=== PATIENT | female | born 1985 | race Caucasian/White ===

== ENCOUNTER 2016-10-09 17:20 | Emergency (ER) | payer OTHER ==
[~2016-10-09] VITALS: Ht 152.4 cm; Wt 100.5 kg
[~2016-10-09 17:20] MED LIST: CEPH-443 PO; CIPR500T4 PO; HYDR-906 PO; IBUP-1542 PO; PHEN-538 PO
[2016-10-09 17:37] VITALS: Ht 152.4 cm; Wt 100.5 kg
[2016-10-09 18:43] LABS: URINE BLOOD (Dip) POC Trace-intact (NEGATIVE)
--- NOTE | 2016-10-09 19:10 | ERD ---
ER Documentation Chief Complaint Date/Time DATE: 10/09/16 TIME: 19:07 Chief Complaint "SORE THROAT & UTI" STARTING ON THURSDAY HPI This a 31-year-old female who presents to the emergency department today complaining of sore throat and cough for the past week. Patient also reports burning and pain with urination for the past 2 days. States she is taking over- the-counter medication for the urinary tract infection. Denies any shortness of breath, fevers or chills. ROS All systems reviewed and are negative except as per history of present illness. Medications Home Meds Active Scripts Cetirizine Hcl* (Zyrtec*) 10 Mg Capsule, 10 MG PO DAILY, #14 TAB.CHEW Prov:COMPA GOMEZ PA-C 10/09/16 Guaifenesin-Dextromethorphan* (Robitussin* DM) 100MG/10MG/5ML Syrup, 10 ML PO Q4H Y for COUGH for 5 Days, ML Prov:COMPA GOMEZ PA-C 10/09/16 Acetaminophen* (Tylophen*) 500 Mg Capsule, 1 CAP PO Q6H Y for PAIN AND OR ELEVATED TEMP, #30 CAP Prov:COMPA GOMEZ PA-C 10/09/16 Ibuprofen* (Motrin*) 600 Mg Tab, 600 MG PO Q6, #30 TAB Prov:COMPA GOMEZC 10/09/16 Cephalexin* (Keflex*) 500 Mg Capsule, 500 MG PO QID for 7 Days, CAP Prov:COMPA GOMEZ PA-C 10/09/16 Ibuprofen* (Motrin*) 600 Mg Tab, 600 MG PO Q8, #30 TAB Prov:ANKIT CHEN, MEDICINE AIDE 05/29/16 Hydrocodone/Acetaminophen ([place] 5-325 Tablet) 1 Each Tablet, 1 TAB PO Q6H Y for PAIN, #5 TAB 0 Refills Prov:ANKIT CHEN NP 05/29/16 Cephalexin* (Keflex*) 500 Mg Capsule, 500 MG PO QID for 7 Days, CAP Prov:ZARINA RALPH PA-C 09/20/15 Ciprofloxacin Hcl* (Ciprofloxacin Hcl*) 500 Mg Tablet, 500 MG PO BID, #20 TAB Prov:MICHELLE JEAN PA-C 06/02/15 Hydrocodone Bit-Acetaminophen ([place]) 5-325 Mg Tablet, 1 TAB PO Q4H Y for PAIN, #10 TAB Prov:MICHELLE JEAN PA-C 06/02/15 Ciprofloxacin Hcl* (Ciprofloxacin Hcl*) 500 Mg Tablet, 500 MG PO BID for 7 Days , TAB Prov:LALITHA ROBBINS PA-C 01/16/15 Phenazopyridine Hcl* (Pyridium*) 200 Mg Tab, 200 MG PO TID for 2 Days, TAB Prov:LALITHA ROBBINS PA-C 01/16/15 Allergies Allergies: Coded Allergies: No Known Allergy (Verified , 01/15/15) PMhx/Soc Medical and Surgical Hx: pt denies Medical Hx, pt denies Surgical Hx History of Surgery: No Anesthesia Reaction: No Hx Neurological Disorder: No Hx Respiratory Disorders: No Hx Cardiac Disorders: No Hx Psychiatric Problems: No Hx Miscellaneous Medical Probl: No Hx Alcohol Use: No Hx Substance Use: No Hx Tobacco Use: No Smoking Status: Never smoker Physical Exam Vitals Vital Signs Date Time Temp Pulse Resp B/P Pulse Ox O2 Delivery O2 Flow Rate FiO2 10/09/16 17:37 99.6 88 20 131/81 96 Physical Exam Const: No acute distress Head: Atraumatic Eyes: Normal Conjunctiva ENT: Ears TMs normal. Nose no drainage. Throat mild erythema no exudate. Neck: Full range of motion..~ No meningismus. Resp: Clear to auscultation bilaterally no absent breath sounds. No wheezing. Cardio: Regular rate and rhythm, no murmurs Abd: Soft, mild suprapubic tenderness on distended. Normal bowel sounds. No right lower quadrant pain. No tenderness to McBurney's. Skin: No petechiae or rashes Neur: Awake and alert Psych: Normal Mood and Affect Results 24 hrs Laboratory Tests Test 10/09/16 18:46 Bedside Urine Blood Trace-intact Bedside Urine Glucose (UA) Negative Bedside Urine Ketones (LAB) Negative Bedside Urine Leukocyte Esterase (L 1+ Bedside Urine Nitrite (LAB) Positive Bedside Urine Protein (LAB) Trace Bedside Urine pH (LAB) 6.0 Procedures/MDM This is a 31-year-old female who presents to the emergency department today with multiple complaints. Patient was complaining of a sore throat and cough for the past week and dysuria for the past 2 days. I did obtain a UA UA shows 1+ leukocyte Estrace and positive nitrates. I will treat the patient for urinary tract infection with Keflex. test is negative. Patient's ENT exam was benign. She is benign. Her oxygen saturation is 96%. She denies any shortness of breath. I will give her a prescription for Tylenol , Motrin and Robitussin as well as Zyrtec. Patient symptoms at this time was consistent with URI likely viral. . I have low suspicion for strep pharyngitis , peritonsillar abscess, retropharyngeal abscess, otitis media, PNA, sinusitis, abscess, meningitis, sepsis, or other acute infectious bacterial process. At this time the patient is stable for discharge and outpatient management. They should follow up with their PCP in the next 1-2. They may return to the emergency department sooner if symptoms persist or worsen. Patient understood and agreed with the plan. . Departure Diagnosis: Primary Impression: UTI (urinary tract infection) Urinary tract infection type: site unspecified Hematuria presence: without hematuria Qualified Code: N39.0 - Urinary tract infection without hematuria, site unspecified Additional Impression: URI (upper respiratory infection) URI type: unspecified URI Qualified Code: J06.9 - Upper respiratory tract infection, unspecified type Condition: COMPA Shah PA-C Oct 09, 2016 19:09
[2016-10-09] MEDS ORDERED: IBUP-1542 PO (19:11)
[2016-10-09] MEDS ORDERED: CEPH-443 PO (19:11)
[2016-10-09] MEDS ORDERED: ACET500C5 PO (19:11)
[2016-10-09] MEDS ORDERED: CETI10CA PO (19:12)
[2016-10-09] MEDS ORDERED: UDROBDM PO (19:12)
[2016-10-09 19:22] VITALS: BP 127/77; PULSE 92; RESP 18; TEMP 98.9
== END 2016-10-09 19:23 | disposition home or self-care (01) ==
LOC: FTE 17:20
DX: N39.0 Urinary tract infection, site not specified (principal); J06.9 Acute upper respiratory infection, unspecified
CPT/HCPCS: 81003; Z7502; 99283

== ENCOUNTER 2016-12-24 08:38 | Emergency (ER) | payer OTHER ==
[~2016-12-24] VITALS: Ht 144.8 cm; Wt 99.5 kg
[~2016-12-24 08:38] MED LIST changes: +ACET500C5 PO; +CETI10CA PO; +UDROBDM PO
[2016-12-24 08:41] VITALS: Ht 144.8 cm; Wt 99.5 kg
[2016-12-24 09:14] LABS: URINE BLOOD (Dip) POC 3+ (NEGATIVE)
[2016-12-24] MEDS ORDERED: IBUPROFEN 600 MG TAB PO ONE (09:30)
--- NOTE | 2016-12-24 09:41 | RADRPT ---
PROCEDURE: US Pelvis CLINICAL INDICATION: L pelvic pain TECHNIQUE: Multiple sonographic images of the pelvis were obtained utilizing a transabdominal and endovaginal technique. The images were reviewed on a PACS workstation. COMPARISON: Pelvic ultrasound from 05/29/2016 LMP: 11/30/2016 FINDINGS: The uterus measures 9.8 x 4.8 x 5.2 cm. The endometrial echo complex measures 15 mm in thickness. A n appropriately positioned intrauterine device is noted. A sub-centimeter Nabothian cyst is identifi ed. The right ovary measures 3.8 x 2.0 x 1.8 cm. The left ovary measures 2.6 x 1.3 x 1.7 cm. There is no rmal vascular flow in both ovaries. No significant ovarian lesions are seen. No significant pelvic free fluid is identified. IMPRESSION: An appropriately positioned intrauterine device is noted. Thickening of the endometrium to 15 mm is likely due to stage of the menstrual cycle. Bilateral ovaries and adnexa are unremarkable. RPTAT: EE Physician Key Date Time Electronically viewed and signed by Physician Key on 12/24/2016 09:41 /
[2016-12-24] MEDS ORDERED: IBUP-1542 PO (10:25)
[2016-12-24] MEDS ORDERED: NITR-58 PO (10:26)
--- NOTE | 2016-12-24 10:34 | ERD ---
ER Documentation Chief Complaint Date/Time DATE: 12/24/16 TIME: 10:29 Chief Complaint LEFT SIDED BACK PAIN RADIATING TO LOWER ABD HPI Patient is a 31-year-old female who presents to the emergency department with left-sided pelvic pain which started 3 months ago. Patient describes the pain to be episodic in nature. Patient states in the past that she was told she had an L ovarian cyst. Patient states that this morning she woke up with significant pain, worse than previously. Patient states that the pain also radiates to her left lower back. Patient denies any fevers, chills, nausea, vomiting, upper abdominal pain, diarrhea. Patient also complaining of increased urination and dysuria. Patient denies any hematuria. Patient states her last menstrual period was on 11-27-16. Patient denies any excessive bleeding or excessive vaginal discharge. ROS All systems reviewed and are negative except as per history of present illness. Medications Home Meds Active Scripts Nitrofurantoin Monohyd Macrocr* (Macrobid*) 100 Mg Capsr, 100 MG PO BID for 5 Days, CAP Prov:CHARI DONALD-C 12/24/16 Ibuprofen* (Motrin*) 600 Mg Tab, 600 MG PO Q6, #30 TAB Prov:CHARI DONALD-C 12/24/16 Cetirizine Hcl* (Zyrtec*) 10 Mg Capsule, 10 MG PO DAILY, #14 TAB.CHEW Prov:COMPA GOMEZ-C 10/09/16 Guaifenesin-Dextromethorphan* (Robitussin* DM) 100MG/10MG/5ML Syrup, 10 ML PO Q4H Y for COUGH for 5 Days, ML Prov:COMPA GOMEZ-C 10/09/16 Acetaminophen* (Tylophen*) 500 Mg Capsule, 1 CAP PO Q6H Y for PAIN AND OR ELEVATED TEMP, #30 CAP Prov:COMPA GOMEZ-C 10/09/16 Ibuprofen* (Motrin*) 600 Mg Tab, 600 MG PO Q6, #30 TAB Prov:COMPA GOMEZ-C 10/09/16 Cephalexin* (Keflex*) 500 Mg Capsule, 500 MG PO QID for 7 Days, CAP Prov:COMPA GOMEZ-C 10/09/16 Ibuprofen* (Motrin*) 600 Mg Tab, 600 MG PO Q8, #30 TAB Prov:ANKIT CHEN, CHELI 05/29/16 Hydrocodone/Acetaminophen ([place] 5-325 Tablet) 1 Each Tablet, 1 TAB PO Q6H Y for PAIN, #5 TAB 0 Refills Prov:ANKIT CHEN, CHELI 05/29/16 Cephalexin* (Keflex*) 500 Mg Capsule, 500 MG PO QID for 7 Days, CAP Prov:ZARINA RALPH PA-C 09/20/15 Ciprofloxacin Hcl* (Ciprofloxacin Hcl*) 500 Mg Tablet, 500 MG PO BID, #20 TAB Prov:MICHELLE JEAN PA-C 06/02/15 Hydrocodone Bit-Acetaminophen ([place]) 5-325 Mg Tablet, 1 TAB PO Q4H Y for PAIN, #10 TAB Prov:MICHELLE JEAN PA-C 06/02/15 Ciprofloxacin Hcl* (Ciprofloxacin Hcl*) 500 Mg Tablet, 500 MG PO BID for 7 Days , TAB Prov:LALITHA ROBBINS PA-C 01/16/15 Phenazopyridine Hcl* (Pyridium*) 200 Mg Tab, 200 MG PO TID for 2 Days, TAB Prov:LALITHA ROBBINS PA-C 01/16/15 Allergies Allergies: Coded Allergies: No Known Allergy (Verified , 12/24/16) PMhx/Soc Medical and Surgical Hx: pt denies Medical Hx, pt denies Surgical Hx History of Surgery: No Anesthesia Reaction: No Hx Neurological Disorder: No Hx Respiratory Disorders: No Hx Cardiac Disorders: No Hx Psychiatric Problems: No Hx Miscellaneous Medical Probl: No Hx Alcohol Use: No Hx Substance Use: No Hx Tobacco Use: No Smoking Status: Never smoker FmHx Family History: No diabetes Physical Exam Vitals Vital Signs Date Time Temp Pulse Resp B/P Pulse Ox O2 Delivery O2 Flow Rate FiO2 12/24/16 10:45 77 18 137/68 99 Room Air 12/24/16 08:41 98.0 91 19 135/73 99 Physical Exam GENERAL: Well-developed, well-nourished female. Appears in no acute distress. Speaking in full sentences. HEAD: Normocephalic, atraumatic. EYES: Pupils are equally reactive bilaterally. EOMs grossly intact. No conjunctival erythema. ENT: Moist mucous membranes. No uvula deviation. No kissing tonsils. NECK: Supple. No meningismus. Normal range of motion of the neck. LUNG: Clear to auscultation bilaterally. No rhonchi, wheezing, rales or coarse breath sounds. HEART: Regular rate and rhythm. No murmurs, rubs or gallops. ABDOMEN: Soft and nondistended. +Tender to palpation in the lower left pelvic region. Positive bowel sounds in all four quadrants. No rebound tenderness, no guarding. (-) McBurney's point tenderness. No CVA tenderness. BACK: No midline tenderness. EXTREMITIES: Equal pulses bilaterally. No peripheral clubbing, cyanosis or edema. No unilateral leg swelling. NEUROLOGIC: Alert and oriented. Moving all four extremities without any difficulty. Normal speech. Steady gait. SKIN: Normal color. Warm and dry. No rashes or lesions. Results 24 hrs Laboratory Tests Test 12/24/16 09:16 Bedside Urine pH (LAB) 6.0 Bedside Urine Protein (LAB) Negative Bedside Urine Glucose (UA) Negative Bedside Urine Ketones (LAB) Negative Bedside Urine Blood 3+ Bedside Urine Nitrite (LAB) Negative Bedside Urine Leukocyte Esterase (L 3+ Current Medications Medications (Trade) Dose Ordered Sig/Ashwini Route PRN Reason Start Time Stop Time Status Last Admin Dose Admin Ibuprofen (Motrin) 600 mg ONCE ONCE PO 12/24/16 09:30 12/24/16 09:31 DC 12/24/16 09:10 Procedures/MDM ED COURSE: The patient was stable throughout ED course. I kept the patient and/or family informed of laboratory and diagnostic imaging results throughout the ED course. DIAGNOSTIC IMAGING: Read by radiologist. DIAGNOSTIC IMAGING REPORT Patient: CHI PARDO : 1985 Age: 31 Sex: F MR #: [id number] DOS: 12/24/16 09 Ordering MD: CHARI DONALD PA-C Location: [facility] Room/Bed: PROCEDURE: US Pelvis CLINICAL INDICATION: L pelvic pain TECHNIQUE: Multiple sonographic images of the pelvis were obtained utilizing a transabdominal and endovaginal technique. The images were reviewed on a PACS workstation. COMPARISON: Pelvic ultrasound from 05/29/2016 LMP: 11/30/2016 FINDINGS: The uterus measures 9.8 x 4.8 x 5.2 cm. The endometrial echo complex measures 15 mm in thickness. An appropriately positioned intrauterine device is noted. A sub-centimeter Nabothian cyst is identified. The right ovary measures 3.8 x 2.0 x 1.8 cm. The left ovary measures 2.6 x 1.3 x 1.7 cm. There is normal vascular flow in both ovaries. No significant ovarian lesions are seen. No significant pelvic free fluid is identified. IMPRESSION: An appropriately positioned intrauterine device is noted. Thickening of the endometrium to 15 mm is likely due to stage of the menstrual cycle. Bilateral ovaries and adnexa are unremarkable. RPTAT: EE Physician Key Date Time Electronically viewed and signed by Zia Silva Physician on 12/24/2016 09:41 RA/ CC: CHARI DONALD PA-C PROCEDURES: None. MEDICATIONS GIVEN: Ibuprofen Patient tolerated medication well with no adverse reactions. Patient reported improvement in pain. MEDICAL DECISION MAKING: This is a 31-year-old female who presents with left lower pelvic pain 3 months which was significantly worse upon waking up this morning. Vital signs were reviewed. Patient was afebrile. Urine test was negative. Urine dip showed +blood and +leukocyte esterase. Pelvic US showed An appropriately positioned intrauterine device is noted. Thickening of the endometrium to 15 mm is likely due to stage of the menstrual cycle. Bilateral ovaries and adnexa are unremarkable. Given these findings, the patient's presentation is most consistent with UTI. I have a much lower clinical concern for ectopic , ovarian torsion, PID, tubo-ovarian abscess, fibroids, endometriosis, nephrolithiasis, pyelonephritis, UTI, appendicitis, diverticulitis. PRESCRIPTIONS: Macrobid, Ibuprofen DISCHARGE: At this time, patient is stable for discharge and outpatient management. I have instructed the patient to follow-up with his/her primary care physician in 1-2 days. I have discussed with the patient the possibility of needing to see a specialist for further workup and diagnostic studies if the pain persists. I have instructed the patient to promptly return to the ER at any time for any new or worsening symptoms including increased pain, nausea, vomiting, vaginal bleeding, weakness or fever. The patient and/or family expressed understanding of and agreement with this plan. All questions were answered. Home care instructions were provided. Departure Diagnosis: Primary Impression: UTI (urinary tract infection) Urinary tract infection type: site unspecified Hematuria presence: with hematuria Qualified Code: N39.0 - Urinary tract infection with hematuria, site unspecified Additional Impression: Pelvic pain Condition: Stable Patient Instructions: Understanding Urinary Tract Infections (UTIs) Referrals: MOSHE HAWLEY (PCP) Additional Instructions: Call your primary care doctor TOMORROW for an appointment during the next 1-2 days.See the doctor sooner or return here if your condition worsens before your appointment time. CHARI DONALD PA-C December 24, 2016 10:34
[2016-12-24 10:45] VITALS: BP 137/68; PULSE 77; RESP 18
== END 2016-12-24 10:46 | disposition home or self-care (01) ==
LOC: FTE 08:38
DX: N39.0 Urinary tract infection, site not specified (principal); R10.2 Pelvic and perineal pain
CPT/HCPCS: 76830; 76856; 81003; Z7502; Z7610

== ENCOUNTER 2017-06-19 08:14 | Emergency (ER) | payer OTHER ==
[~2017-06-19] VITALS: Ht 152.4 cm; Wt 103.0 kg
[~2017-06-19 08:14] MED LIST changes: +NITR-58 PO
[2017-06-19 08:17] VITALS: Ht 152.4 cm; Wt 103.0 kg
[2017-06-19] MEDS ORDERED: IBUPROFEN 600 MG TAB PO ONE (09:00)
--- NOTE | 2017-06-19 09:29 | RADRPT ---
PROCEDURE: XR Ankle 3 Views. CLINICAL INDICATION: Left ankle pain. TECHNIQUE: AP, oblique and lateral views of the left ankle were performed. COMPARISON: None. FINDINGS: The osseous structures are intact. No destructive bony lesions are observed. Interosseous spaces a ppear normal. The soft tissues surrounding the ankle are unremarkable. IMPRESSION: Unremarkable left ankle. If further characterization is needed CT or MRI could be helpful. If there is high clinical suspicion for traumatic injury, further evaluation with CT should be consi dered. RPTAT: AA .Buck Frank MD, Date Time Electronically viewed and signed by .Buck Frank MD, on 06/19/2017 09:29 .P/
--- NOTE | 2017-06-19 09:31 | RADRPT ---
PROCEDURE: XR Foot 3 Views. CLINICAL INDICATION: Left foot pain. TECHNIQUE: AP, oblique and lateral views of the left foot were obtained. The images were reviewed on a PACS workstation. COMPARISON: None. FINDINGS: The osseous structures are intact. No destructive bony lesions are identified. Interosseous spaces are normal. 9 mm osseous projection from the medial cortex of the base of the second metatarsal is identified. Soft tissues surrounding the foot appear unremarkable. IMPRESSION: 9 mm osseous projection from the medial cortex of the base of the second metatarsal. This may reflec t a small osteochondroma. Otherwise, unremarkable exam. If further characterization is needed CT or MRI could be helpful. If there is high clinical suspicion for traumatic injury, further evaluation with CT should be consi dered. RPTAT: AA .Buck Frank MD, Date Time Electronically viewed and signed by .Buck Frank MD, on 06/19/2017 09:30 .P/
--- NOTE | 2017-06-19 09:36 | RADRPT ---
PROCEDURE: XR Tibia and Fibula 2 Views. CLINICAL INDICATION: Right lower leg pain. TECHNIQUE: AP and lateral views of the right tibia and fibula were obtained. COMPARISON: No prior studies are available for comparison. FINDINGS: The osseous structures are intact. No destructive bony lesions are identified. Interosseous spaces are normal. Soft tissues surrounding the tibia and fibula are unremarkable. IMPRESSION: Unremarkable right tibia and fibula. If further characterization is needed CT or MRI could be helpful. If there is high clinical suspicion for traumatic injury, further evaluation with CT should be consi dered. RPTAT: AA .Buck Frank MD, Date Time Electronically viewed and signed by .Buck Frank MD, on 06/19/2017 09:36 .P/
--- NOTE | 2017-06-19 09:38 | RADRPT ---
PROCEDURE: XR Femur 2 Views. CLINICAL INDICATION: Right leg pain. TECHNIQUE: AP and lateral views of the right femur were performed. COMPARISON: None. FINDINGS: The osseous structures are intact. No destructive bony lesions are identified. Interosseous spaces are normal. Scattered calcific densities are identified in the medial and lateral soft tissues ove r the thigh. The remaining soft tissues are unremarkable. IMPRESSION: Scattered calcific densities in the medial and lateral soft tissues over the thigh. This could refle ct material external to the patient, film artifact or potentially foreign bodies in the soft tissues . Correlation with physical exam is recommended. If further characterization is needed CT should be considered. Otherwise, unremarkable exam. If further characterization is needed CT or MRI could be helpful. If there is high clinical suspicion for traumatic injury, further evaluation with CT should be consi dered. RPTAT: AA .Buck Frank MD, MD Date Time Electronically viewed and signed by .Buck Frank MD, MD on 06/19/2017 09:38 .P/
[2017-06-19] MEDS ORDERED: NAPR-260 PO (10:03)
--- NOTE | 2017-06-19 17:57 | ERD ---
ER Documentation Chief Complaint Chief Complaint Left ankle pain s/p fell down stairs 2 days ago; ambulates with limp HPI Patient is a 32-year-old female presenting to the emergency department complaints of right femur pain, left ankle pain, and left foot pain after she tripped and fell down 3 stairs 2 days ago. Pain is worse with ambulation. Ibuprofen alleviates. 9 out of 10 pain reported. She denies loss of consciousness, head injury, or other injuries or symptoms at this time. ROS All systems reviewed and are negative except as per history of present illness. Medications Home Meds Active Scripts Naproxen* (Naprosyn*) 500 Mg Tablet, 500 MG PO BID Y for PAIN AND/OR INFLAMMATION, #30 TAB Prov:PATTIE MCODNALD PA-C 06/19/17 Nitrofurantoin Monohyd Macrocr* (Macrobid*) 100 Mg Capsr, 100 MG PO BID for 5 Days, CAP Prov:CHARI DONALD PA-C 12/24/16 Ibuprofen* (Motrin*) 600 Mg Tab, 600 MG PO Q6, #30 TAB Prov:CHARI DONALD PA-C 12/24/16 Cetirizine Hcl* (Zyrtec*) 10 Mg Capsule, 10 MG PO DAILY, #14 TAB.CHEW Prov:COMPA GOMEZ PA-C 10/09/16 Guaifenesin-Dextromethorphan* (Robitussin* DM) 100MG/10MG/5ML Syrup, 10 ML PO Q4H Y for COUGH for 5 Days, ML Prov:COMPA GOMEZ PA-C 10/09/16 Acetaminophen* (Tylophen*) 500 Mg Capsule, 1 CAP PO Q6H Y for PAIN AND OR ELEVATED TEMP, #30 CAP Prov:COMPA GOMEZ PA-C 10/09/16 Ibuprofen* (Motrin*) 600 Mg Tab, 600 MG PO Q6, #30 TAB Prov:COMPA GOMEZ PA-C 10/09/16 Cephalexin* (Keflex*) 500 Mg Capsule, 500 MG PO QID for 7 Days, CAP Prov:COMPA GOMEZ PA-C 10/09/16 Ibuprofen* (Motrin*) 600 Mg Tab, 600 MG PO Q8, #30 TAB Prov:ANKIT CHEN, CHELI 05/29/16 Hydrocodone/Acetaminophen ([place] 5-325 Tablet) 1 Each Tablet, 1 TAB PO Q6H Y for PAIN, #5 TAB 0 Refills Prov:ANKIT CHEN, CHELI 05/29/16 Cephalexin* (Keflex*) 500 Mg Capsule, 500 MG PO QID for 7 Days, CAP Prov:ZARINA RALPH PA-C 09/20/15 Ciprofloxacin Hcl* (Ciprofloxacin Hcl*) 500 Mg Tablet, 500 MG PO BID, #20 TAB Prov:MICHELLE JEAN PA-C 06/02/15 Hydrocodone Bit-Acetaminophen ([place]) 5-325 Mg Tablet, 1 TAB PO Q4H Y for PAIN, #10 TAB Prov:MICHELLE JEAN PA-C 06/02/15 Ciprofloxacin Hcl* (Ciprofloxacin Hcl*) 500 Mg Tablet, 500 MG PO BID for 7 Days , TAB Prov:LALITHA ROBBINS PA-C 01/16/15 Phenazopyridine Hcl* (Pyridium*) 200 Mg Tab, 200 MG PO TID for 2 Days, TAB Prov:LALITHA ROBBINS PA-C 01/16/15 Allergies Allergies: Coded Allergies: No Known Allergy (Verified , 12/24/16) PMhx/Soc Medical and Surgical Hx: pt denies Medical Hx, pt denies Surgical Hx History of Surgery: No Anesthesia Reaction: No Hx Neurological Disorder: No Hx Respiratory Disorders: No Hx Cardiac Disorders: No Hx Psychiatric Problems: No Hx Miscellaneous Medical Probl: No Hx Alcohol Use: Yes (social) Hx Substance Use: No Hx Tobacco Use: No Physical Exam Vitals Vital Signs Date Time Temp Pulse Resp B/P Pulse Ox O2 Delivery O2 Flow Rate FiO2 06/19/17 08:17 97.8 99 18 129/65 98 Physical Exam Const: Nontoxic, well-appearing female in no acute distress. Head: Atraumatic Eyes: Normal Conjunctiva ENT: Normal External Ears, Nose and Mouth. Ext: There is palpation of the right femur, right tib-fib, left lateral malleolus. Swelling noted to the left lateral malleolus. There is tenderness to palpation fifth metatarsal of the left foot. No open fractures noted. Neur: Awake and alert Psych: Normal Mood and Affect Results 24 hrs Current Medications Medications (Trade) Dose Ordered Sig/Ashwini Route PRN Reason Start Time Stop Time Status Last Admin Dose Admin Ibuprofen (Motrin) 600 mg ONCE ONCE PO 06/19/17 09:00 06/19/17 09:01 DC 06/19/17 09:22 Procedures/MDM 32-year-old female presenting for pain after fall. Diagnosis is left ankle sprain. No acute fracture noted on radiology studies. Patient stable and appropriate for outpatient management with a prescription for pain medication. She agreed with the discharge plan/diagnosis and she is to return immediately for any new or worsening symptoms. She is to follow-up with her primary care physician in the next 1-2 days. PROCEDURE: XR Ankle 3 Views. CLINICAL INDICATION: Left ankle pain. TECHNIQUE: AP, oblique and lateral views of the left ankle were performed. COMPARISON: None. FINDINGS: The osseous structures are intact. No destructive bony lesions are observed. Interosseous spaces appear normal. The soft tissues surrounding the ankle are unremarkable. IMPRESSION: Unremarkable left ankle. If further characterization is needed CT or MRI could be helpful. If there is high clinical suspicion for traumatic injury, further evaluation with CT should be considered. RPTAT: AA .Buck Frank MD, MD Date Time Electronically viewed and signed by .Buck Frank MD, MD on 06/19/2017 09:29 PROCEDURE: XR Femur 2 Views. CLINICAL INDICATION: Right leg pain. TECHNIQUE: AP and lateral views of the right femur were performed. COMPARISON: None. FINDINGS: The osseous structures are intact. No destructive bony lesions are identified. Interosseous spaces are normal. Scattered calcific densities are identified in the medial and lateral soft tissues over the thigh. The remaining soft tissues are unremarkable. IMPRESSION: Scattered calcific densities in the medial and lateral soft tissues over the thigh. This could reflect material external to the patient, film artifact or potentially foreign bodies in the soft tissues. Correlation with physical exam is recommended. If further characterization is needed CT should be considered. Otherwise, unremarkable exam. If further characterization is needed CT or MRI could be helpful. If there is high clinical suspicion for traumatic injury, further evaluation with CT should be considered. RPTAT: AA .Buck Frank MD, MD Date Time Electronically viewed and signed by .Buck Frank MD, MD on 06/19/2017 09:38 PROCEDURE: XR Foot 3 Views. CLINICAL INDICATION: Left foot pain. TECHNIQUE: AP, oblique and lateral views of the left foot were obtained. The images were reviewed on a PACS workstation. COMPARISON: None. FINDINGS: The osseous structures are intact. No destructive bony lesions are identified. Interosseous spaces are normal. 9 mm osseous projection from the medial cortex of the base of the second metatarsal is identified. Soft tissues surrounding the foot appear unremarkable. IMPRESSION: 9 mm osseous projection from the medial cortex of the base of the second metatarsal. This may reflect a small osteochondroma. Otherwise, unremarkable exam. If further characterization is needed CT or MRI could be helpful. If there is high clinical suspicion for traumatic injury, further evaluation with CT should be considered. RPTAT: AA .Buck Frank MD, MD Date Time Electronically viewed and signed by .Buck Frank MD, MD on 06/19/2017 09:30 PROCEDURE: XR Tibia and Fibula 2 Views. CLINICAL INDICATION: Right lower leg pain. TECHNIQUE: AP and lateral views of the right tibia and fibula were obtained. COMPARISON: No prior studies are available for comparison. FINDINGS: The osseous structures are intact. No destructive bony lesions are identified. Interosseous spaces are normal. Soft tissues surrounding the tibia and fibula are unremarkable. IMPRESSION: Unremarkable right tibia and fibula. If further characterization is needed CT or MRI could be helpful. If there is high clinical suspicion for traumatic injury, further evaluation with CT should be considered. RPTAT: AA .Buck Frank MD, MD Date Time Electronically viewed and signed by .Buck Frank MD, MD on 06/19/2017 09:36 Departure Diagnosis: Primary Impression: Left ankle sprain Encounter type: initial encounter Involved ligament of ankle: unspecified ligament Qualified Code: S93.402A - Sprain of left ankle, unspecified ligament , initial encounter Condition: Fair Patient Instructions: Treating Ankle Sprains Additional Instructions: Call your primary care doctor TOMORROW for an appointment during the next 1-2 days.See the doctor sooner or return here if your condition worsens before your appointment time. PATTIE MCDONALD PA-C Jun 19, 2017 17:57
== END 2017-06-19 10:12 | disposition left against medical advice (07) ==
LOC: FTE 08:14
DX: S93.402A Sprain of unspecified ligament of left ankle, initial encounter (principal); W10.9XXA Fall (on) (from) unspecified stairs and steps, initial encounter; Y92.9 Unspecified place or not applicable
CPT/HCPCS: 73550; 73590; 73610; 73630; Z7502; Z7610

== ENCOUNTER 2017-09-29 20:11 | Emergency (ER) | END 2017-09-30 00:26 | disposition home or self-care (01) ==

== ENCOUNTER 2018-03-12 02:05 | Emergency (ER) | END 2018-03-12 06:52 | disposition home or self-care (01) ==

== ENCOUNTER 2018-06-03 04:07 | Emergency (ER) | END 2018-06-03 06:25 | disposition home or self-care (01) ==

== ENCOUNTER 2018-06-16 18:30 | Emergency (ER) | END 2018-06-16 20:53 | disposition home or self-care (01) ==

== ENCOUNTER 2018-06-17 18:10 | Inpatient (IN) | END 2018-06-19 14:15 | disposition home or self-care (01) | DRG 872 ==

== ENCOUNTER 2018-10-05 04:01 | Emergency (ER) | payer OTHER ==
[~2018-10-05] VITALS: Ht 144.8 cm; Wt 95.9 kg
[~2018-10-05 04:01] MED LIST changes: -CIPR500T4 PO; +HC30CR25 TOP; -HYDR-906 PO; -IBUP-1542 PO; +IBUP800T48 PO; +METF500T PO; -NITR-58 PO; -PHEN-538 PO; -UDROBDM PO
[2018-10-05 04:04] VITALS: Ht 144.8 cm; Wt 95.9 kg
[2018-10-05] MEDS ORDERED: NITR-58 PO (05:41)
--- NOTE | 2018-10-05 05:44 | ERD ---
ER Documentation Chief Complaint Chief Complaint painful urination and frequency since yesterday. HPI Patient is a 33-year-old female presents ER for concerns of dysuria, urinary frequency times 2 days. Patient denies any fevers, chills, nausea, vomiting, abdominal pain or flank pain. Patient denies any hematuria. No recent travel. No sick contacts. ROS All systems reviewed and are negative except as per history of present illness. Medications Home Meds Active Scripts Nitrofurantoin Monohyd Macrocr* (Macrobid*) 100 Mg Capsr, 100 MG PO BID for 5 Days, CAP Prov:CHARI DONALD PA-C 10/05/18 Metformin Hcl (Glucophage) 500 Mg Tablet, 500 MG PO BID WITH MEALS for 14 Days, #30 TAB Prov:SHA PERSON MD 06/19/18 Hydrocortisone* Topical (Hydrocortisone* Topical) 2.5%-28.3 Gm Cream..g., 1 APPLIC TOP BID, #1 TUB Prov:CHANTELLEFAB 06/03/18 Ibuprofen* (Motrin*) 800 Mg Tab, 800 MG PO Q6H PRN for PAIN AND OR ELEVATED TEMP, #30 TAB Prov:PASILABANBRITTANYAR F 03/12/18 Cetirizine Hcl* (Zyrtec*) 10 Mg Capsule, 10 MG PO DAILY, #14 TAB.CHEW Prov:COMPA GOMEZ PA-C 10/09/16 Acetaminophen* (Tylophen*) 500 Mg Capsule, 1 CAP PO Q6H PRN for PAIN AND OR ELEVATED TEMP, #30 CAP Prov:COMPA GOMEZ PA-C 10/09/16 Cephalexin* (Keflex*) 500 Mg Capsule, 500 MG PO QID for 7 Days, CAP Prov:ZARINA RALPH PA-C 09/20/15 Allergies Allergies: Coded Allergies: No Known Allergy (Verified , 06/17/18) PMhx/Soc History of Surgery: No Anesthesia Reaction: No Hx Neurological Disorder: No Hx Respiratory Disorders: No Hx Cardiac Disorders: No Hx Psychiatric Problems: No Hx Miscellaneous Medical Probl: No (diabates) Hx Alcohol Use: No Hx Substance Use: No Hx Tobacco Use: No Smoking Status: Never smoker FmHx Family History: No diabetes Physical Exam Vitals Vital Signs Date Temp Pulse Resp B/P (MAP) Pulse Ox O2 O2 Flow FiO2 Time Delivery Rate 10/05/18 97.1 64 16 123/74 96 04:04 (90) Physical Exam GENERAL: Well-developed, well-nourished female. Appears in no acute distress. HEAD: Normocephalic, atraumatic. EYES: Pupils are equally reactive bilaterally. EOMs grossly intact. No conjunctival erythema. NECK: Supple. No meningismus. Normal range of motion of the neck. LUNG: Clear to auscultation bilaterally. No rhonchi, wheezing, rales or coarse breath sounds. HEART: Regular rate and rhythm. No murmurs, rubs or gallops. ABDOMEN: No scars, ecchymosis or rashes noted. Soft, nontender, and nondistended. Positive bowel sounds in all four quadrants. No rebound tenderness, no guarding. (-) McBurney's point tenderness. No CVA tenderness. EXTREMITIES: Equal pulses bilaterally. No peripheral clubbing, cyanosis or edema. No unilateral leg swelling. NEUROLOGIC: Alert and oriented. Moving all four extremities without any difficulty. Normal speech. Steady gait. SKIN: Normal color. Warm and dry. No rashes or lesions. Results 24 hrs Laboratory Tests Test 10/05/18 05:40 10/05/18 05:42 Bedside Urine pH (LAB) 6.0 Bedside Urine Protein (LAB) 1+ Bedside Urine Glucose (UA) Negative Bedside Urine Ketones (LAB) Negative Bedside Urine Blood 3+ Bedside Urine Nitrite (LAB) Negative Bedside Urine Leukocyte Esterase (L 2+ POC Beta HCG, Qualitative NEGATIVE Procedures/MDM MEDICAL DECISION MAKING: This is a 33-year-old female presents the ER for concerns of dysuria times 2 days. Vital signs were reviewed. Patient was afebrile. UA did show signs of a urinary tract infection.. Urine was negative. Given these findings, the patients presentation is most consistent with urinary tract infection. Low suspicion for pyelonephritis, nephrolithiasis, appendicitis, diverticulitis, constipation, ectopic , PID, ovarian torsion, or tubo-ovarian abscess. Patient was nontoxic, [id number] prior to discharge. PRESCRIPTIONS: Macrobid DISCHARGE: At this time, patient is stable for discharge and outpatient management. I have instructed the patient to follow-up with his/her primary care physician in 1-2 days. Patient should repeat UA in 2 weeks to check for resolution of urinary tract infection. If symptoms persist, patient may need to see a specialist for further examinations and testing. I have instructed the patient to promptly return to the ER at any time for any new or worsening symptoms including increased pain, fever, nausea, vomiting, urinary changes or weakness. The patient and/or family expressed understanding of and agreement with this plan. All questions were answered. Home care instructions were provided. Disclaimer: Inadvertent spelling and grammatical errors are likely due to EHR/dictation software use and do not reflect on the overall quality of patient care. Also, please note that the electronic time recorded on this note does not necessarily reflect the actual time of the patient encounter. Departure Diagnosis: Primary Impression: UTI (urinary tract infection) Urinary tract infection type: site unspecified Hematuria presence: without hematuria Qualified Codes: N39.0 - Urinary tract infection, site not specified Condition: Stable Patient Instructions: Understanding Urinary Tract Infections (UTIs) Referrals: SHAYLEE DONNELLY (PCP) Additional Instructions: Call your primary care doctor TOMORROW for an appointment during the next 1-2 days.See the doctor sooner or return here if your condition worsens before your appointment time. CHARI DONALD PA-C Oct 05, 2018 05:44
[2018-10-05 05:52] VITALS: BP 120/75; PULSE 98; RESP 19
== END 2018-10-05 05:53 | disposition home or self-care (01) ==
LOC: FTE 04:01
DX: N39.0 Urinary tract infection, site not specified (principal); Z79.84 Long term (current) use of oral hypoglycemic drugs
CPT/HCPCS: 81003; 81025; Z7502; 99283

== ENCOUNTER 2018-11-19 08:44 | Emergency (ER) | payer SELFPAY ==
[~2018-11-19] VITALS: Ht 144.8 cm; Wt 95.0 kg
[~2018-11-19 08:44] MED LIST changes: +NITR-58 PO
[2018-11-19 08:47] VITALS: Ht 144.8 cm; Wt 95.0 kg
[2018-11-19] MEDS ORDERED: SOD CHLORIDE 0.9% 1,000 ML IV STA (09:36)
[2018-11-19] MEDS ORDERED: ONDANSETRON 4 MG INJ IV STA (09:36)
[2018-11-19] MEDS ORDERED: KETOROLAC 30 MG INJ IV STA (10:35)
[2018-11-19] MEDS ORDERED: NORE1TAB12 PO (10:51)
[2018-11-19] MEDS ORDERED: FER325 PO (10:51)
[2018-11-19] MEDS ORDERED: DOCU-144 PO (10:51)
[2018-11-19 11:50] VITALS: BP 120/62; PULSE 74; RESP 18
--- NOTE | 2018-11-19 12:25 | ERD ---
ER Documentation Chief Complaint Chief Complaint pt bib self with c/o dizziness, headache, elevated BP/BS @ home, mikalhattie HPI 33-year-old female presenting with dizziness and headache. Patient states she received her Depo-Provera shot in September and has had continued bleeding ever since. She is not having heavy bleeding however it has been continuous. She has an appointment next week to get an IUD placed. She felt that her blood pressure was very high at work earlier today and took it. Results were 190/117. She has had a blood sugar of 374 at home and felt dizzy with a headache. Denies abdominal pain. Denies chest pain or shortness of breath. Medical history is diabetes. NKDA. Surgical history denies. Social history denies ROS All systems reviewed and are negative except as per history of present illness. Medications Home Meds Active Scripts Noreth A-Et Estra/Fe Fumarate (LO LOESTRIN FE 1-10 TABLET) 1 Each Tablet, 1 EACH PO DAILY, #28 TAB Prov:MICHELLE JEAN PA-C 11/19/18 Docusate Sodium* (Colace*) 100 Mg Capsule, 100 MG PO TID, #30 CAP Prov:MICHELLE JEAN PA-C 11/19/18 Ferrous Sulfate* (Ferrous Sulfate*) 325 Mg Tabec, 325 MG PO BID, #30 TAB Prov:MICHELLE JEAN PA-C 11/19/18 Nitrofurantoin Monohyd Macrocr* (Macrobid*) 100 Mg Capsr, 100 MG PO BID for 5 Days, CAP Prov:CHARI DONALD PA-C 10/05/18 Metformin Hcl (Glucophage) 500 Mg Tablet, 500 MG PO BID WITH MEALS for 14 Days, #30 TAB Prov:SHA PERSON MD 06/19/18 Hydrocortisone* Topical (Hydrocortisone* Topical) 2.5%-28.3 Gm Cream..g., 1 APPLIC TOP BID, #1 TUB Prov:FAB LOCKHART 06/03/18 Ibuprofen* (Motrin*) 800 Mg Tab, 800 MG PO Q6H PRN for PAIN AND OR ELEVATED TEMP, #30 TAB Prov:JOSUE GRIFFIN 03/12/18 Cetirizine Hcl* (Zyrtec*) 10 Mg Capsule, 10 MG PO DAILY, #14 TAB.CHEW Prov:ELMACOMPA Rao PA-C 10/09/16 Acetaminophen* (Tylophen*) 500 Mg Capsule, 1 CAP PO Q6H PRN for PAIN AND OR ELEVATED TEMP, #30 CAP Prov:COMPA GOMEZ Jalen PULLIAM 10/09/16 Cephalexin* (Keflex*) 500 Mg Capsule, 500 MG PO QID for 7 Days, CAP Prov:ZARINA RALPH JENIFFERC 09/20/15 Allergies Allergies: Coded Allergies: No Known Allergy (Verified , 06/17/18) PMhx/Soc History of Surgery: No Anesthesia Reaction: No Hx Neurological Disorder: No Hx Respiratory Disorders: No Hx Cardiac Disorders: No Hx Psychiatric Problems: No Hx Miscellaneous Medical Probl: No (diabates) Hx Alcohol Use: No Hx Substance Use: No Hx Tobacco Use: No FmHx Family History: No diabetes, No coronary disease, No other Physical Exam Vitals Vital Signs Date Temp Pulse Resp B/P (MAP) Pulse Ox O2 O2 Flow FiO2 Time Delivery Rate 11/19/18 98.2 74 18 120/62 98 Room Air 11:50 (81) 11/19/18 98.3 89 18 126/75 99 08:47 (92) Physical Exam GENERAL: The patient is well-appearing, well-nourished, in no acute distress HEENT: Atraumatic. Conjunctivae are pink. Pupils equal, round, and reactive to light. There is no scleral icterus. Tympanic membranes clear bilaterally. Oropharynx clear. NECK: C-spine is soft and supple. There is no meningismus. There is no cervical lymphadenopathy. CHEST: Clear to auscultation bilaterally. There are no rales, wheezes or rhonchi. HEART: Regular rate and rhythm. No murmurs, clicks, rubs or gallops. EXTREMITIES: Equal pulses bilaterally. There is no peripheral clubbing, cyanosis or edema. No focal swelling or erythema. Full range of motion. Grossly neurovascularly intact. NEUROLOGIC: Alert and oriented. Cranial nerves II through XII intact. Motor strength in all 4 extremities with 5 out of 5 strength. Sensation grossly intact. Normal speech and gait. Babinski negative. DTR 2+ throughout. SKIN: There is no apparent rash or petechiae. The skin is warm and dry. Result Diagram: 4/12/19 0956 11/19/1856 Results 24 hrs Laboratory Tests Test 11/19/18 09:55 11/19/18 09:56 POC Beta HCG, Qualitative NEGATIVE White Blood Count 8.8 10^3/ul Red Blood Count 4.03 10^6/ul Hemoglobin 10.9 g/dl Hematocrit 34.0 % Mean Corpuscular Volume 84.4 fl Mean Corpuscular Hemoglobin 27.0 pg Mean Corpuscular Hemoglobin Concent 32.1 g/dl Red Cell Distribution Width 13.2 % Platelet Count 349 10^3/UL Mean Platelet Volume 10.6 fl Immature Granulocytes % 0.700 % Neutrophils % 64.9 % Lymphocytes % 28.5 % Monocytes % 4.6 % Eosinophils % 0.8 % Basophils % 0.5 % Nucleated Red Blood Cells % 0.0 /100WBC Immature Granulocytes # 0.060 10^3/ul Neutrophils # 5.7 10^3/ul Lymphocytes # 2.5 10^3/ul Monocytes # 0.4 10^3/ul Eosinophils # 0.1 10^3/ul Basophils # 0.0 10^3/ul Nucleated Red Blood Cells # 0.0 10^3/ul Urine Color YELLOW Urine Clarity SLIGHTLY CLOUDY Urine pH 6.0 Urine Specific [place] 1.015 Urine Ketones NEGATIVE mg/dL Urine Nitrite NEGATIVE mg/dL Urine Bilirubin NEGATIVE mg/dL Urine Urobilinogen NEGATIVE mg/dL Urine Leukocyte Esterase NEGATIVE Osiel/ul Urine Microscopic RBC > 182 /HPF Urine Microscopic WBC 69 /HPF Urine Squamous Epithelial Cells FEW /HPF Urine Bacteria FEW /HPF Urine Mucus FEW /HPF Urine Yeast (Budding) FEW /HPF Urine Hemoglobin 3+ mg/dL Urine Glucose 3+ mg/dL Urine Total Protein 1+ mg/dl Sodium Level 138 mmol/L Potassium Level 4.1 mmol/L Chloride Level 103 mmol/L Carbon Dioxide Level 24 mmol/L Anion Gap 11 Blood Urea Nitrogen 9 mg/dl Creatinine 0.49 mg/dl Est Glomerular Filtrat Rate mL/min > 60 mL/min Glucose Level 296 mg/dl Calcium Level 9.8 mg/dl Total Bilirubin 0.5 mg/dl Direct Bilirubin 0.00 mg/dl Indirect Bilirubin 0.5 mg/dl Aspartate Amino Transf (AST/SGOT) 41 IU/L Alanine Aminotransferase (ALT/SGPT) 53 IU/L Alkaline Phosphatase 93 IU/L Total Protein 7.5 g/dl Albumin 4.2 g/dl Globulin 3.30 g/dl Albumin/Globulin Ratio 1.27 Lipase 81 U/L Current Medications Medications Dose Sig/Ashwini Start Time Status Last (Trade) Ordered Route PRN Stop Time Admin Dose Reason Admin Sodium 1,000 ml @ Q1H STAT 11/19/18 DC 11/19/18 Chloride 1,000 mls/hr IV 09:36 10:01 11/19/18 10:35 Ondansetron 4 mg ONCE STAT 11/19/18 DC 11/19/18 HCl (Zofran IV 09:36 10:01 Inj) 11/19/18 09:37 Ketorolac 30 mg ONCE STAT 11/19/18 DC 11/19/18 Tromethamine IV 10:35 10:50 (Toradol) 11/19/18 10:36 Procedures/MDM MDM: 33-year-old female presenting with dizziness. Patient blood work is stable. Patient is anemic however does not require transfusion. Patient is not having heavy vaginal bleeding. I will place patient on supplemental hormones to help regulate hormone level. Patient is told symptoms change or worsen to return immediately to the ER. Patient is discharged with supportive medications. All questions answered discharge Departure Diagnosis: Primary Impression: Dizziness Condition: Stable Patient Instructions: Anemia, Dizziness, Unk Cause Referrals: SHAYLEE DONNELLY (PCP) Additional Instructions: FOLLOW UP WITH YOUR PRIMARY CARE PHYSICIAN TOMORROW.Return to this facility if you are not improving as expected. MICHELLE JEAN PA-C Nov 19, 2018 12:25
== END 2018-11-19 11:51 | disposition home or self-care (01) ==
LOC: FTE 08:44
DX: R42 Dizziness and giddiness (principal); E11.9 Type 2 diabetes mellitus without complications; Z79.84 Long term (current) use of oral hypoglycemic drugs
CPT/HCPCS: 36415; 80053; 81001; 81025; 83690; 85025; 96374; 96375; 99284; J1885; J2405; J7030

== ENCOUNTER 2018-12-16 13:04 | Emergency (ER) | payer OTHER ==
[~2018-12-16] VITALS: Ht 157.5 cm; Wt 97.2 kg
[~2018-12-16 13:04] MED LIST changes: +DOCU-144 PO; +FER325 PO; +NORE1TAB12 PO
[2018-12-16 13:06] VITALS: BP 140/83; PULSE 103; RESP 15; Ht 157.5 cm; Wt 97.2 kg
--- NOTE | 2018-12-16 14:01 | ERD ---
ER Documentation Chief Complaint Chief Complaint Pt with L shoulder pain since yesterday, no trauma/injury reported. 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 The patient has been taking ibuprofen with mild improvement of the symptoms. She denies distal weakness, numbness or tingling. ROS All systems reviewed and are negative except as per history of present illness. Medications Home Meds Active Scripts Noreth A-Et Estra/Fe Fumarate (LO LOESTRIN FE 1-10 TABLET) 1 Each Tablet, 1 EACH PO DAILY, #28 TAB Prov:MICHELLE JEAN PA-C 11/19/18 Docusate Sodium* (Colace*) 100 Mg Capsule, 100 MG PO TID, #30 CAP Prov:MICHELLE JEAN PA-C 11/19/18 Ferrous Sulfate* (Ferrous Sulfate*) 325 Mg Tabec, 325 MG PO BID, #30 TAB Prov:MICHELLE JEAN PA-C 11/19/18 Nitrofurantoin Monohyd Macrocr* (Macrobid*) 100 Mg Capsr, 100 MG PO BID for 5 Days, CAP Prov:CHARI DONALD PA-C 10/05/18 Metformin Hcl (Glucophage) 500 Mg Tablet, 500 MG PO BID WITH MEALS for 14 Days, #30 TAB Prov:SHA PERSON MD 06/19/18 Hydrocortisone* Topical (Hydrocortisone* Topical) 2.5%-28.3 Gm Cream..g., 1 APPLIC TOP BID, #1 TUB Prov:CHANTELLEFAB 06/03/18 Ibuprofen* (Motrin*) 800 Mg Tab, 800 MG PO Q6H PRN for PAIN AND OR ELEVATED TEMP, #30 TAB Prov:JOSUE GRIFFIN 03/12/18 Cetirizine Hcl* (Zyrtec*) 10 Mg Capsule, 10 MG PO DAILY, #14 TAB.CHEW Prov:COMPA GOMEZ PA-C 10/09/16 Acetaminophen* (Tylophen*) 500 Mg Capsule, 1 CAP PO Q6H PRN for PAIN AND OR ELEVATED TEMP, #30 CAP Prov:COMPA GOMEZ PA-C 10/09/16 Cephalexin* (Keflex*) 500 Mg Capsule, 500 MG PO QID for 7 Days, CAP Prov:LOREEZARINA PA-C 09/20/15 Allergies Allergies: Coded Allergies: No Known Allergy (Verified , 06/17/18) PMhx/Soc The patient has history of diabetes. History of Surgery: No Anesthesia Reaction: No Hx Neurological Disorder: No Hx Respiratory Disorders: No Hx Cardiac Disorders: No Hx Psychiatric Problems: No Hx Miscellaneous Medical Probl: No (diabates) Hx Alcohol Use: No Hx Substance Use: No Hx Tobacco Use: No FmHx Family History: diabetes Physical Exam Vitals Vital Signs Date Temp Pulse Resp B/P (MAP) Pulse Ox O2 O2 Flow FiO2 Time Delivery Rate 12/16/18 98.6 103 15 140/83 95 13:06 (102) Physical Exam Const: No acute distress Head: Atraumatic Eyes: Normal Conjunctiva ENT: Normal External Ears, Nose and Mouth. Neck: Full range of motion. No meningismus. Resp: Clear to auscultation bilaterally Cardio: Regular rate and rhythm, no murmurs Abd: Soft, non tender, non distended. Normal bowel sounds Skin: No petechiae or rashes Back: No midline or flank tenderness Ext: Left shoulder: Normal inspection, decreased range of motion due to pain, muscle spasm noticed over this suprascapular area. Neur: Awake and alert Psych: Normal Mood and Affect Procedures/MDM Acute left shoulder pain: no red flags. Differential diagnosis include but not limited to: Shoulder contusion, rotator cuff injury, tendon/ligament injury, arthritis; low suspicion for fracture, dislocation, septic arthritis. Neurovascular exam grossly intact. no clinical findings suggestive of acute infectious process, no acute deformity, no edema, no rashes. Physical examination and clinical presentation consistent most likely with left shoulder sprain During the ED course the patient received treatment with Toradol IM presenting overall improvement of the symptoms. Results and clinical impression discussed with the patient who agrees with management. The patient is stable to be treated outpatient and will be discharged home with recommendations for ice, rest and partial immobilization. NSAIDs 3 times daily for 5 days and close monitoring. The patient was instructed to follow up with the primary care provider in the next 48h. If symptoms persist, worsen or new symptoms develop, then patient should return to the ED immediately. Instructions explained and given to patient with acknowledgment and demonstrated understanding. Disclaimer: Inadvertent spelling and grammatical errors are likely due to EHR/dictation software use and do not reflect on the overall quality of patient care. Also, please note that the electronic time recorded on this note does not necessarily reflect the actual time of the patient encounter. Departure Diagnosis: Primary Impression: Sprain of left shoulder Condition: Stable Additional Instructions: Thank you very much for allowing us to participate in your care. Your health and safety is our top priority at [facility]. The evaluation in the emergency department has been done to rule out an acute emergency, therefore, chronic conditions like malignancy or other diseases have not been evaluated; therefore, you need to follow up with a primary care provider in the next 48h. If symptoms persist, worsen or new symptoms develop, then patient should return to the ED immediately. Call your primary care doctor TOMORROW for an appointment during the next 2-4 days and bring all the information provided. Have prescriptions filled and follow precisely the directions on the label. If the symptoms get worse and your provider is unavailable, return to the Emergency Department immediately. ANGEL XIE MD December 16, 2018 14:01
[2018-12-16] MEDS ORDERED: KETOROLAC 30 MG INJ IM STA (14:06)
[2018-12-16] MEDS ORDERED: HYDROCODONE/APAP (5/325) TAB PO ONE (14:30)
[2018-12-16] MEDS ORDERED: IBUP-1561 PO (14:54)
[2018-12-16] MEDS ORDERED: HYDR-4011 PO (14:54)
[2018-12-16] MEDS ORDERED: BACL10TA PO (14:54)
== END 2018-12-16 15:05 | disposition home or self-care (01) ==
LOC: FTE 13:04
DX: S43.402A Unspecified sprain of left shoulder joint, initial encounter (principal); X50.0XXA Overexertion from strenuous movement or load, initial encounter; Y92.89 Other specified places as the place of occurrence of the external cause
CPT/HCPCS: 81025; 96372; J1885; Z7502; Z7610

== ENCOUNTER 2019-01-13 17:10 | Emergency (ER) | payer OTHER ==
[~2019-01-13] VITALS: Ht 154.9 cm; Wt 95.4 kg
[~2019-01-13 17:10] MED LIST changes: +BACL10TA PO; +HYDR-4011 PO; +IBUP-1561 PO
[2019-01-13 17:23] VITALS: Ht 154.9 cm; Wt 95.4 kg
[2019-01-13] MEDS ORDERED: HYDROCODONE/APAP (5/325) TAB PO ONE (19:00)
--- NOTE | 2019-01-13 19:05 | ERD ---
ER Documentation Chief Complaint Chief Complaint LOWER BACK ,PELVIC PAIN AND HEADACHE X 4 DAYS HPI 33-year-old female presents with complaint of lower back and pelvic pain for the past 4 days. States she had an IUD put in 2 months ago but her provider noticed last week that there were no strings noted in the os. She had an ultrasound last week to see the placement of the IUD but she had not gotten the results back. Denies any fevers, chills, dysuria, hematuria, vomiting, abdominal pain. ROS All systems reviewed and are negative except as per history of present illness. Medications Home Meds Active Scripts Cephalexin* (Keflex*) 500 Mg Capsule, 500 MG PO BID for 7 Days, CAP Prov:PATTIE CLOUD 01/13/19 Hydrocodone/Acetaminophen (Barnard 5-325 Tablet) 1 Each Tablet, 1 TAB PO Q6H PRN for PAIN, #10 TAB Prov:PATTIE CLOUD 01/13/19 Ibuprofen* (Motrin*) 600 Mg Tab, 600 MG PO Q6, #30 TAB Prov:PATTIE CLOUD 01/13/19 Hydrocodone/Acetaminophen (Barnard 5-325 Tablet) 1 Each Tablet, 1 TAB PO Q6H PRN for PAIN, #7 TAB Prov:ANGEL XIE MD 12/16/18 Baclofen* (Baclofen*) 10 Mg Tablet, 10 MG PO QHS for 7 Days, TAB Prov:ANGEL XIE MD 12/16/18 Ibuprofen* (Motrin*) 400 Mg Tab, 400 MG PO Q6H PRN for PAIN AND OR ELEVATED TEMP, #20 TAB Prov:ANGEL XIE MD 12/16/18 Noreth A-Et Estra/Fe Fumarate (LO LOESTRIN FE 1-10 TABLET) 1 Each Tablet, 1 EACH PO DAILY, #28 TAB Prov:MICHELLE JEAN PA-C 11/19/18 Docusate Sodium* (Colace*) 100 Mg Capsule, 100 MG PO TID, #30 CAP Prov:MICHELLE JEAN PA-C 11/19/18 Ferrous Sulfate* (Ferrous Sulfate*) 325 Mg Tabec, 325 MG PO BID, #30 TAB Prov:MICHELLE JEAN PA-C 11/19/18 Nitrofurantoin Monohyd Macrocr* (Macrobid*) 100 Mg Capsr, 100 MG PO BID for 5 Days, CAP Prov:CHARI DONALD PA-C 10/05/18 Metformin Hcl (Glucophage) 500 Mg Tablet, 500 MG PO BID WITH MEALS for 14 Days, #30 TAB Prov:SHA PERSON MD 06/19/18 Hydrocortisone* Topical (Hydrocortisone* Topical) 2.5%-28.3 Gm Cream..g., 1 APPLIC TOP BID, #1 TUB Prov:CHANTELLEDELMAFAB 06/03/18 Ibuprofen* (Motrin*) 800 Mg Tab, 800 MG PO Q6H PRN for PAIN AND OR ELEVATED TEMP, #30 TAB Prov:AUBREYILABANJOSUE 03/12/18 Cetirizine Hcl* (Zyrtec*) 10 Mg Capsule, 10 MG PO DAILY, #14 TAB.CHEW Prov:COMPA GOMEZ PA-C 10/09/16 Acetaminophen* (Tylophen*) 500 Mg Capsule, 1 CAP PO Q6H PRN for PAIN AND OR ELEVATED TEMP, #30 CAP Prov:COMPA GOMEZ PA-C 10/09/16 Cephalexin* (Keflex*) 500 Mg Capsule, 500 MG PO QID for 7 Days, CAP Prov:ZARINA RALPH PA-C 09/20/15 Allergies Allergies: Coded Allergies: No Known Allergy (Verified , 06/17/18) PMhx/Soc History of Surgery: No Anesthesia Reaction: No Hx Neurological Disorder: No Hx Respiratory Disorders: No Hx Cardiac Disorders: No Hx Psychiatric Problems: No Hx Miscellaneous Medical Probl: No Hx Alcohol Use: No Hx Substance Use: No Hx Tobacco Use: No Smoking Status: Never smoker FmHx Family History: No diabetes, No coronary disease, No other Physical Exam Vitals Vital Signs Date Temp Pulse Resp B/P (MAP) Pulse Ox O2 O2 Flow FiO2 Time Delivery Rate 01/13/19 98.6 99 19 139/75 99 Room Air 21:51 (96) 01/13/19 99.1 114 18 136/82 98 17:23 (100) Physical Exam Const: No acute distress Head: Atraumatic Eyes: Normal Conjunctiva ENT: Normal External Ears, Nose and Mouth. Neck: Full range of motion. No meningismus. Resp: Clear to auscultation bilaterally Cardio: Regular rate and rhythm, no murmurs Abd: Moderate tenderness to palpation in the pelvic area bilaterally. Negative McBurney's. Otherwise normal abdominal exam. Skin: No petechiae or rashes Back: No midline or flank tenderness Ext: No cyanosis, or edema Neur: Awake and alert Psych: Normal Mood and Affect Results 24 hrs Laboratory Tests Test 01/13/19 19:01 01/13/19 19:08 Urine Color YELLOW Urine Clarity CLEAR Urine pH 6.0 Urine Specific Glover 1.013 Urine Ketones NEGATIVE mg/dL Urine Nitrite POSITIVE mg/dL Urine Bilirubin NEGATIVE mg/dL Urine Urobilinogen NEGATIVE mg/dL Urine Leukocyte Esterase 1+ Osiel/ul Urine Microscopic RBC 3 /HPF Urine Microscopic WBC 12 /HPF Urine Bacteria FEW /HPF Urine Hemoglobin NEGATIVE mg/dL Urine Glucose 2+ mg/dL Urine Total Protein NEGATIVE mg/dl POC Beta HCG, Qualitative NEGATIVE Current Medications Medications Dose Sig/Ashwini Start Time Status Last (Trade) Ordered Route PRN Stop Time Admin Dose Reason Admin 1 tab ONCE ONCE 01/13/19 DC 01/13/19 Acetaminophen PO 19:00 01/13/19 19:04 / 19:02 Hydrocodone Bitart (Barnard (5/325)) Procedures/MDM DIAGNOSTIC IMAGING REPORT Patient: CHI PARDO : 1985 Age: 33 Sex: F MR #: [id number] DOS: 01/13/19 1856 Ordering MD: PATTIE CLOUD Location: [facility] Room/Bed: PROCEDURE: US Pelvis. CLINICAL INDICATION: pelvic pain TECHNIQUE: Multiple sonographic images of the pelvis were obtained utilizing transabdominal technique. The images were reviewed on a PACS workstation. COMPARISON: None. FINDINGS: The uterus is normal in size with a normal appearance of the myometrium. The uterus measures 7.5 x 3.8 x 5.6 cm. The endometrial stripe is homogeneous in appearance and has the thickness of 6 mm. There is an IUD seen within the endometrium, partially visualized. The left ovary was not seen. The right ovary measures 3.2 x 2.1 x 2.7 cm. There is a 1.6 cm simple cyst in t he right ovary. There is Doppler flow in the right ovary. No free fluid is present within the pelvis. RPTAT: AA IMPRESSION: IUD within the endometrium, partially visualized. Small simple cyst in the right ovary. Left ovary not visualized. .Chris Taveras MD, MD Date Time Electronically viewed and signed by .Chris Taveras MD, on 01/13/2019 19:41 .S/ CC: PEDRO LUISPATTIE [phone] MDM: I discussed the results of the ultrasound with Dr. Mccarty of labor and delivery and she said that the IUD was in place and no further follow-up was necessary. UA was positive for UTI which could account for the pelvic pain. Patient will be placed on a course of Keflex. I have low suspicion for ectopic , ovarian torsion, PID, tubo-ovarian abscess, uterine prolapse, ovarian cancer, uterine cancer, nephrolithiasis, pyelonephritis, appendicitis, diverticulitis, bowel obstruction, perirectal abscess. Patient discharged with strict ER precautions. Patient advised to follow up with PMD. All questions answered at discharge. Departure Diagnosis: Primary Impression: UTI (urinary tract infection) Urinary tract infection type: acute cystitis Hematuria presence: without hematuria Qualified Codes: N30.00 - Acute cystitis without hematuria Additional Impression: Pelvic pain Condition: Stable PATTIE CLOUD Jan 13, 2019 19:05
[2019-01-13] MEDS ORDERED: IBUP-1542 PO (21:35)
[2019-01-13] MEDS ORDERED: HYDR-4011 PO (21:35)
[2019-01-13] MEDS ORDERED: CEPH-443 PO (21:36)
[2019-01-13 21:51] VITALS: BP 139/75; PULSE 99; RESP 19
== END 2019-01-13 21:52 | disposition home or self-care (01) ==
LOC: FTE 17:10
DX: N30.00 Acute cystitis without hematuria (principal)
CPT/HCPCS: 76856; 81001; 81025; Z7502; Z7610